=== PATIENT | male | born 1975 | race Caucasian/White ===

== ENCOUNTER 2024-12-08 09:25 | Outpatient (REF) | payer OTHER, SELFPAY ==
--- OUTSIDE RECORDS SUMMARY | 2024-12-09 10:40 | XMS_ITS | Clinical Summary ---
Author Organization [facility] Address [address] [address] Phone Care Team Providers Care Plastic Sheets Supervisor Name Role Phone Braulio Shields INTERNAL CONTROLS SPECIALIST Primary Care Provider [phone] Allergies Active Allergy Reactions Criticality Noted Date Comments Penicillins Other (See Comments) 11/22/2004 Unknown Medications nitroglycerin (RECTIV) 0.4 % (w/w) Oint Place 1 inch rectally 2 (two) times a day. For eight weeks 30 g 3 10/15/2021 Active Active Problems Problem Noted Date Diagnosed Date Allergic rhinitis 11/22/2004 Overview (05/06/2014): Allergic rhinitis Social History Tobacco Use Types Packs/Day Years Used Date Smoking Tobacco: Never Assessed Education Answer Date Recorded Are you interested in more education? Not on fito e 07/11/2022 Are you concerned about learning? Not on file 07/11/2022 No 07/11/2022 No 07/11/2022 Digital Access Answer Date Recorded No 08/12/2022 No 08/12/2022 No 08/12/2022 Reliable internet access at home? Not on file 08/12/2022 Device with a working camera? Not on file Sex and Gender Information Value Date Recorded Sex Assigned at Not on file Legal Sex Male 7:28 PM EST Gender Identity Not on file Sexual Orientation Not on file Last Filed Vital Signs Vital Sign Reading Time Taken Comments Blood Pressure 127/83 10/15/2021 11:13 AM EDT Pulse 67 10/15/2021 11:10 AM EDT Temperature 36.1 C (97 F) 10/15/2021 11:10 AM EDT Respiratory Rate 20 10/15/2021 11:10 AM EDT Oxygen Saturation 98% 10/15/2021 11:10 AM EDT Inhaled Oxygen Concentration - - Weight 68 kg (150 lb) 10/15/2021 11:10 AM EDT Height 180.3 cm (5' 11 ) 10/15/2021 11:10 AM EDT Body Mass Index 20.92 10/15/2021 11:10 AM EDT Plan of Treatment Health Maintenance Due Date Last Done Comments Adult Td,Tdap Booster 1974 LIPID PANEL 1974 DEPRESSION SCREENING 1986 SMOKING Hx and SMOKELESS TOB ACCO SCREENING 1987 HEPATITIS C SCREENING 01/04/1992 HIV ONE-TIME SCREENING (18-6 5 YEARS) 01/04/1992 COLOGUARD 2019 COLONOSCOPY 2019 COLORECTAL CANCER SCREENING 2019 FIT TEST 2019 FOBT 2019 SIGMOIDOSCOPY 2019 VIRTUAL COLONOSCOPY 2019 PNEUMOCOCCAL VACCINES (50+ y ears) (1 of 1 - PCV) 01/04/2024 ZOSTER VACCINES (1 of 2) 01/04/2024 INFLUENZA VACCINE (#1) 2024 COVID-19 VACCINE (2 - 2024-2 6 season) 2024 07/08/2020 HEPATITIS A VACCINES Aged Out No long er eligible based on patient's age to complete this topic HIB VACCINES Aged Out No longer eligi ble based on patient's age to complete this topic MENINGOCOCCAL VACCINES (ACWY) Aged Out No longer eligible based on patient's age to complete this topic MENINGOCOCCAL VACCINES (B) Aged Out N o longer eligible based on patient's age to complete this topic Medical Devices Not on file Insurance [facility] NSPG PCP [employer]ERCIAL WELLSENSE NON NSPG PCP [employer] COMMERCIAL WELLSENSE NON NSPG PCP CLARITY COMMERCIAL WELLSENSE NON NSPG PCP CLARITY COMMERCIAL CANNON BEACHENSE NON NSPG PCP CLARITY COMMERCIAL CANNON BEACHENSE NON NSPG PCP CLARITY COMMERCIAL WELLSENSE NON NSPG PCP CLARITY COMMERCIAL WELLSENSE NON NSPG PCP CLARITY COMMERCIAL WELLSENSE NON NSPG PCP CLARITY COMMERCIAL Care Teams Plastic Sheets Supervisor Relationship Specialty Start Date End Date Braulio Shields NP [address] [place] [id number] PCP - General 03/20/17 Additional Source Comments The information contained in this document represents components of the legal health record. It is not the complete legal health record.[facility]
== END 2024-12-08 09:26 | disposition home or self-care (01) ==
LOC: HO.HOSX 09:25
PROVIDERS: Visit Provider Orthopaedic Surgery
DX: Z13.89 Encounter for screening for other disorder (principal)

== ENCOUNTER 2024-12-13 11:52 | Outpatient (REF) | payer OTHER, SELFPAY | END 2024-12-13 11:53 | disposition home or self-care (01) | LOC: HO.HOSX 11:52 | PROVIDERS: Visit Provider Orthopaedic Surgery | DX: Z13.89 Encounter for screening for other disorder (principal) ==

== ENCOUNTER 2024-12-20 11:41 | Outpatient (REF) | payer OTHER, SELFPAY ==
--- NOTE | ~2024-12-20 | XR_ITS ---
EXAMINATION: XR PELVIS CLINICAL INFORMATION: M25.559 - Pain in unspecified hip COMPARISON: None available. TECHNIQUE: AP view of the pelvis. FINDINGS: Right hip joint space is maintained. Left hip joint space is maintained, with sclerosis and cysts in the lateral aspect of the acetabulum. Small chronic appearing ossification adjacent to the left acetabulum. No acute fracture or dislocation is seen. SI joints and symphysis pubis are maintained. No suspicious lytic or blastic lesions. Spondylosis in the visualized lower lumbar spine. No abnormal soft tissue calcification. XR/XR pelvis 1-2V IMPRESSION: Mild left hip arthritis. Electronically signed by: Baljit Joya MD 12/20/2024 02:12 PM EDT
--- OUTSIDE RECORDS SUMMARY | 2024-12-20 14:15 | XMS_ITS | Clinical Summary ---
Author Organization [facility] Address [address] [address] Phone Care Team Providers Care Engine Turner Name Role Phone Braulio Shields CRANE ENGINEER Primary Care Provider [phone] Allergies Active Allergy Reactions Criticality Noted Date [...] (2 - 2024-2 6 season) 2024 07/08/2020 RSV VACCINE (1 - 1-dose 75+ series) 2049 HEPATITIS A VACCINES Aged Out No long [...] topic Medical Devices Not on file Insurance [employer] NON NSPG PCP [employer]ERCIAL WELLSENSE NON NSPG PCP CL[employer] COMMERCIAL WELLSENSE NON NSPG PCP CLARITY COMMERCIAL WELLSENSE NON NSPG PCP CLARITY COMMERCIAL WELLSENSE NON NSPG PCP CLARITY COMMERCIAL WELLSENSE NON NSPG PCP CLARITY COMMERCIAL WELLSENSE NON NSPG PCP CLARITY COMMERCIAL WELLSENSE NON NSPG PCP CLARITY COMMERCIAL WELLSENSE NON NSPG PCP CLARITY COMMERCIAL Care Teams Engine Turner Relationship Specialty Start Date End Date Braulio Shields NP [address] [place] [id number] PCP - General 03/20/17 Additional Source Comments The information contained in this document represents components of the legal health record. It is not the complete legal health record.[facility]
== END 2024-12-20 11:42 | disposition home or self-care (01) ==
LOC: HO.HOSX 11:41
PROVIDERS: Visit Provider Orthopaedic Surgery
DX: M24.152 Other articular cartilage disorders, left hip (principal)
CPT/HCPCS: 72170; 99202

== ENCOUNTER 2024-12-20 13:54 | Outpatient (AMB) | payer OTHER, SELFPAY ==
--- NOTE | 2024-12-20 14:01 | MHC.OFFVIS ---
Intake Visit Reasons: OV - Right Hip Intake Note: Edvin is a 49 year old male who presents today as a New Patient for his right hip. 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 This stared after a hip rotation and hyper-extension exercise. he has had similar problem in the past and it improves with rest. He is currently feeling better than he has been feeling. When he has pain is is anterior hip and intpo the groin. This has been occurring on and off for years abut not as bad as this last episode. Physical Exam Exam Exam: NAD left hip with + impinbgement test Neg [place]inchfield Full ROM nl gait Results Reviewed Results Reviewed: I personally reviewed relevant radiographs. 1) Right hip joint space is maintained. Left hip joint space is maintained, with sclerosis and cysts in the lateral aspect of the acetabulum. Small chronic appearing ossification adjacent to the left acetabulum. Mikld left hip arthritis. 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 Orders: Orders XR pelvis 1-2V 12/20/24 M25.559 - Pain in unspecified hip MR hip LT wo con 12/20/24 M24.159 - Other articular cartilage disorders, unspecified hip Coding Level of Care Code New Pt Level 3 (46744) Diagnoses Labral tear of hip, degenerative M24.159
== END 2024-12-20 14:36 | disposition home or self-care (01) ==
LOC: HO.HOS 13:54
PROVIDERS: Visit Provider Orthopaedic Surgery
DX: M24.151 Other articular cartilage disorders, right hip (principal)
CPT/HCPCS: 99203

== ENCOUNTER → 2024-12-20 13:57 | Outpatient (BNV) | payer OTHER, SELFPAY | PROVIDERS: Visit Provider Radiology Diagnostic Ultrasound | DX: M16.12 Unilateral primary osteoarthritis, left hip (principal) | CPT/HCPCS: 72170 ==

== ENCOUNTER 2025-02-16 08:01 | Outpatient (REF) | payer OTHER, SELFPAY ==
--- NOTE | ~2025-02-16 | MR_ITS ---
CLINICAL HISTORY: M24.159 - Other articular cartilage disorders, unspecified hip MR left hip without gadolinium Comparison: DX/SR - XR PELVIS 1-2 VIEWS - 12/20/24 13:57 EDT Findings: Examination is degraded by motion artifact. No fractures. No pathologic bone lesions. Periarticular osteophyte formation at the left hip joint. Subchondral cyst formation within the left acetabulum. Acetabulum and femoral neck unremarkable. No acetabular retroversion. No joint effusion. There is diffuse irregular T2 signal elevation throughout the labrum with associated paralabral cyst formation anteriorly. Mild T2 signal elevation adjacent to the femoral insertion site of the left gluteus medius and minimus tendons. Mild T2 signal elevation within the proximal left hamstring tendon. Small amount of free fluid within the pelvis, which is abnormal in a male patient. IMPRESSION: 1. 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 2. Insertional tendinitis of the left gluteus medius and minimus tendons. 3. Mild left hamstring tendinopathy. 4. Small amount of free pelvic fluid. Findings are suggestive of underlying infection, inflammation, or neoplasm. This document has been electronically signed by: Deo Banegas MD on 02/16/2025 14:47:53
--- OUTSIDE RECORDS SUMMARY | 2025-02-16 08:06 | XMS_ITS | Clinical Summary ---
Author Organization [facility] Address [address] [address] Phone Care Team Providers Care Wax Bleacher Name Role Phone Braulio Shields APRON OPERATOR Primary Care Provider [phone] Allergies Active Allergy Reactions Criticality Noted Date [...] NON NSPG PCP CLARITY COMMERCIAL Care Teams Wax Bleacher Relationship Specialty Start Date End Date Braulio Shields NP [address] [place] [id number] PCP - General 03/20/17 Additional Source Comments The information contained in this document represents components of the legal health record. It is not the complete legal health record.[facility]
== END 2025-02-16 08:02 | disposition home or self-care (01) ==
LOC: HO.MRI 08:01
PROVIDERS: Visit Provider Orthopaedic Surgery
DX: M24.159 Other articular cartilage disorders, unspecified hip (principal)
CPT/HCPCS: 73721

== ENCOUNTER → 2025-02-16 08:06 | Outpatient (BNV) | payer OTHER, SELFPAY | PROVIDERS: Visit Provider Radiology Diagnostic Radiology | DX: S73.192A Other sprain of left hip, initial encounter (principal); M16.12 Unilateral primary osteoarthritis, left hip; M67.02 Short Achilles tendon (acquired), left ankle; M76.892 Other specified enthesopathies of left lower limb, excluding foot | CPT/HCPCS: 73721 ==